=== PATIENT | female | born 1985 | race Caucasian/White ===

== ENCOUNTER 2017-07-16 05:51 | Emergency (ER) | payer MEDICAID ==
[~2017-07-16 05:51] MED LIST: BACTRIM 400-801 TA1; BACTRIM DS TABL1 TA1 PO; CIPRO PO; KEFLEX500 MG; LORTAB 5/500 TA1 TA1 PO; LORTAB 7.5-5001 TAB PO; PEN-VEE K PO; PYRIDIUM PO; RONDEC-DM SYRU120 ML PO; VICODIN 5/1 TAB 5/50 PO; VOLTAREN50 MG PO
[2017-07-16 06:19] LABS: BASOPHIL# 0.1 X10e3 (0-0.3); BASOPHIL% 0.8 % (0-2.5); EOSINOPHIL# 0.7 X10e3 (0-0.7); HEMATOCRIT 39.9 % (35.0-45.0); HEMOGLOBIN 13.3 gm/dL (12.0-16.0); LYMPHOCYTE# 8.5 X10e3 (1.0-3.5); LYMPHOCYTE% 50.5 % (17.0-45.0); MEAN CELL VOLUME 86.3 FL (83-96); MEAN CORPUSCULAR HEMOGLOBIN 28.7 PG (28-34); MEAN CORPUSCULAR HGB CONC 33.2 g/dL (30-36); MEAN PLATELET VOLUME 8.5 FL (6.5-11.5); MONOCYTE# 1.1 X10e3 (0-1.0); MONOCYTE% 6.4 % (3.0-12.0); NEUTROPHIL# 6.4 X10e3 (1.5-7.1); NEUTROPHIL% 38.3 % (40-75); PLATELET COUNT 247 X10e3 (140-420); RED BLOOD COUNT 4.62 X10e (3.90-5.30); RED CELL DISTRIBUTION WIDTH 14.6 % (11.0-15.5); WHITE BLOOD COUNT 16.8 X10e3 (4.0-10.5)
[2017-07-16 06:22] LABS: DIFF IND YES
[2017-07-16 06:27] LABS: AMPHETAMINE POS (NEG); BARBITURATES NEG (NEG); BENZODIAZEPINES NEG (NEG); COCAINE NEG (NEG); MARIJUANA NEG (NEG); OPIATES POS (NEG); TRICYCLIC ANTIDEPRESSANTS NEG (NEG); U METHADONE NEG (NEG)
[2017-07-16 07:09] LABS: ANISOCYTOSIS SL; PLATELET ESTIMATE NORMAL (NORMAL)
[2017-07-16 07:46] LABS: ALBUMIN SERUM 3.7 g/dL (3.5-5.0); ALKALINE PHOSPHATASE 82 U/L (32-92); ALT (SGPT) 35 U/L (10-40); AST (SGOT) 36 U/L (10-42); BILIRUBIN, DIRECT 0.1 mg/dL (0.0-0.2); BILIRUBIN,INDIRECT 0.4 mg/dL (0.0-0.9); BILIRUBIN,TOTAL 0.5 mg/dL (0.2-2.0); BLOOD UREA NITROGEN 17 mg/dL (9-23); BUN/CREATININE RATIO 28.33; CALCIUM SERUM 9.2 mg/dL (8.4-10.2); CARBON DIOXIDE 28 mmol/L (22-31); CHLORIDE 103 mmol/L (100-111); CREATININE SERUM 0.6 mg/dL (0.6-1.4); GLOM FILT RATE Estimated 121.5 mL/min (>60); GLUCOSE FASTING 95 mg/dL (70-110); POTASSIUM 4.1 mmol/L (3.5-5.1); PROTEIN TOTAL SERUM 6.7 g/dL (6.0-8.3); SALICYLATE <4.0 mg/dL; SODIUM 139 mmol/L (135-145)
[2017-07-16 07:48] LABS: ACETAMINOPHEN <10 ug/mL
== END 2017-07-16 10:26 | disposition home or self-care (01) ==
LOC: CED 05:51
PROVIDERS: Emergency Medicine
DX: T40.1X1A Poisoning by heroin, accidental (unintentional), initial encounter (principal); F17.200 Nicotine dependence, unspecified, uncomplicated; Z88.0 Allergy status to penicillin
CPT/HCPCS: 36415; 80048; 80076; 80307; 84703; 85025; 96374; 96375; 99284; G0480; J2405